=== PATIENT | female | born 1990 | race Caucasian/White ===

== ENCOUNTER 2022-04-21 11:57 | Outpatient (CLI) | payer OTHER ==
[2022-04-21 12:21] LABS: PTT 29.6 sec (22.9-36.1)
[2022-04-21 12:23] LABS: #Eosinphils 0.1 thou/uL (0.0-0.7); #Lymphocytes 1.3 thou/uL (1.20-3.40); #Monocytes 0.3 thou/uL (0.11-0.59); #Neutrophils 2.2 thou/uL (1.40-6.50); %Basophils 0.7 % (0.0-1.0); %Lymphocytes 33.6 % (21.0-51.0); %Monocytes 6.9 % (0.0-10.0); %Neutrophils 56.8 % (42.0-75.0); Hemoglobin 12.6 g/dL (12.0-16.0); Mean Corpuscular HGB CONC 31.7 g/dL (32.0-36.0); Mean Corpuscular Hemoglobin 30.5 pg (27.0-31.0); Mean Corpuscular Volume 96.2 fL (78.0-98.0); Mean Platelet Volume 12.6 fL (7.4-10.4); Platelet Count 154 thou/uL (130-400); RBC Distribution Width 11.7 % (11.5-14.5); Red Blood Cell (RBC) Count 4.12 mill/uL (4.20-5.40); White Blood Cell (WBC) Count 3.9 thou/uL (4.8-10.8)
[2022-04-21 12:37] LABS: Large Platelets SLIGHT; Platelet Morphology Comment Appears Adequate
[2022-04-21 16:07] LABS: Iron 122 ug/dL (50-170); Iron Binding Capacity, Total 364 mcg/dL (265-497)
== END 2022-04-21 11:58 | disposition home or self-care (01) ==
LOC: MADLAB 11:57
PROVIDERS: ATTEND Family Medicine
DX: D50.9 Iron deficiency anemia, unspecified (principal); R23.3 Spontaneous ecchymoses
CPT/HCPCS: 82728; 83540; 83550; 85025; 85610; 85730

== ENCOUNTER 2023-07-21 01:47 | Emergency (ER) | payer OTHER ==
[2023-07-21 03:11] LABS: #Eosinphils 0.1 thou/uL (0.0-0.7); #Lymphocytes 1.2 thou/uL (1.20-3.40); #Monocytes 0.4 thou/uL (0.11-0.59); #Neutrophils 6.5 thou/uL (1.40-6.50); %Basophils 0.5 % (0.0-1.0); %Lymphocytes 14.1 % (21.0-51.0); %Monocytes 5.1 % (0.0-10.0); %Neutrophils 79.3 % (42.0-75.0); Hematocrit 40.2 % (36.0-47.0); Mean Corpuscular HGB CONC 32.3 g/dL (32.0-36.0); Mean Corpuscular Hemoglobin 31.6 pg (27.0-31.0); Mean Corpuscular Volume 97.9 fl (78.0-98.0); Mean Platelet Volume 10.3 fL (7.4-10.4); Platelet Count 197 10x3/uL (130-400); Red Blood Cell (RBC) Count 4.11 mill/uL (4.20-5.40); White Blood Cell (WBC) Count 8.2 10x3/uL (4.8-10.8)
[2023-07-21 03:13] LABS: Bilirubin Negative (Negative); Blood, Urine Trace (Negative); Glucose, Urine (Dipstick) Negative (Negative); Ketone, Urine Trace mg/dL (Negative); Leukocyte Negative (Negative); Nitrite Negative (Negative); Pregnancy Test - Urine (BHCG) Negative (Negative); Pregu Control Background? CLEAR/WHITE (CLR/WHITE); Pregu Control Bar Appear? YES (CONTROL BAR); Protein, Urine (Dipstick) Negative (Neg-Trace); Specific Gravity 1.025 (1.002-1.036)
[2023-07-21 03:17] LABS: CAUTI Indications for Culture Pregnancy; Clarity Hazy (Clear); Mucous/LPF 2+ LPF (<2+); Specific Gravity, Urine 1.026 (1.002-1.036); Squamous Epithelial 0-3 HPF (0-3); WBC/HPF 0-3 HPF (0-3)
[2023-07-21 03:18] LABS: Urine Culture Reflex Yes Yes
[2023-07-21 03:30] LABS: CRP (Inflammatory) Less than 0.50 mg/dL (= or < 0.5); Lipase 74 U/L (8-78); Magnesium 1.9 mg/dL (1.6-2.6)
[2023-07-21 03:31] LABS: Troponin I Less than 0.010 ng/mL (< 0.028)
[2023-07-21 03:32] LABS: ALT (SGPT) 37 U/L (8-55); AST (SGOT) 89 U/L (5-34); Albumin 4.7 g/dL (3.5-5.0); Alkaline Phosphatase 61 U/L (40-110); Anion Gap 17 mmol/L (10-20); BUN (Urea Nitrogen) 9 mg/dL (7.0-18.7); Bilirubin, Total 0.5 mg/dL (0.2-1.2); Calc. Creatinine Clearance 0 mL/min (70-130); Calcium 9.3 mg/dL (7.8-10.44); Carbon Dioxide 24 mmol/L (22-29); Chloride 104 mmol/L (98-107); Estimated GFR 103; Globulin 3.3 g/dL (2.4-3.5); Glucose 91 mg/dL (70-105); Potassium 3.5 mmol/L (3.5-5.1); Sodium 141 mmol/L (136-145)
== END 2023-07-21 03:33 | disposition home or self-care (01) ==
LOC: MADERS 01:47
DX: R10.13 Epigastric pain (principal)
CPT/HCPCS: 80053; 81001; 81025; 83605; 83690; 83735; 84484; 85025; 86140; 87077; 87086; 93005

== ENCOUNTER 2024-03-07 09:45 | Emergency (ER) | payer OTHER ==
[2024-03-07 10:09] LABS: Bilirubin Negative (Negative); Blood, Urine Negative (Negative); Clarity Clear (Clear); Glucose, Urine (Dipstick) Negative (Negative); Ketone, Urine Negative (Negative); Leukocyte Negative (Negative); Nitrite Negative (Negative); Protein, Urine (Dipstick) Negative (Neg-Trace); Urobilinogen 0.2 mg/dL (Less than 2); pH, Urine 8.5 (5.0-9.0)
[2024-03-07 10:18] LABS: Bacteria/HPF Rare-Few HPF (None Seen); CAUTI Indications for Culture Pelvic or flank pain; RBC/HPF 0-3 HPF (0-3); WBC/HPF 0-3 HPF (0-3)
[2024-03-07 10:19] LABS: Urine Culture Reflex No No
== END 2024-03-07 10:35 | disposition home or self-care (01) ==
LOC: MADERS 09:45
DX: O99.891 Other specified diseases and conditions complicating pregnancy (principal); R10.30 Lower abdominal pain, unspecified
CPT/HCPCS: 81001; 99284